=== PATIENT | male | born 1985 | race Caucasian/White ===

== ENCOUNTER 2017-01-26 23:19 | Emergency (ER) | payer OTHER ==
--- NOTE | 2017-01-27 02:31 | ED NURSING NOTES ---
Clinical Report - Nurses [facility] [address] [place] [address] 01/26/2017 23:19 Patient: LAURA GARIBAY TRIAGE Triage time 23:52 Jan 26 2017. Acuity: LEVEL 4. Chief Complaint: (left 5th finger pain). 23:54 01/26/17. SEPSIS SCREEN: Sepsis Screen. Negative (no infection suspected/documented). ARUN COMA SCORE: Protivin Coma Scale: 15- eyes open spontaneously (4); best verbal response- oriented x 4 (5); best motor response- obeys commands (6). --23:54 Alisia uRiz R.N. 23:54 01/26/17. BP: 156/87. HR: 96. RR: 16. O2 saturation: 100%. Temp: 98.1 F. Pain level now 8/10. --23:54 Alisia Ruiz R.N. Weight: 90.7 kg stated. Height/Length: 70 inches Per Patient. BMI: 28.7. --23:51 Alisia Ruiz R.N. Medications Percocet Oral. --00:14 Alisia Ruiz R.N. Allergies Cillins. Latex. Other antibiotic. Sulfa Antibiotics. --00:14 Alisia Ruiz R.N. Medication/allergy information source: the patient. --23:54 Alisia Ruiz R.N. History Arrived by private vehicle. Historian: patient. Accompanied by family. This started just prior to arrival. ( states out of percocet. may have injured it while working in garage last night.). No fever, weakness, cough, difficulty breathing or skin rash. Denies muscle aches. Treatment BUSINESS INTELLIGENCE REPORTING ANALYST: None. PAST MEDICAL HX: Immunizations: has received tetanus within 5 years. SOCIAL HX: Heavy tobacco smoker (cigarette)- 1 pack per day. Occasional alcohol use. No drug use. No infectious disease exposure. ABUSE ASSESSMENT: No report of abuse. FALL RISK ASSESSMENT: Fall risk assessment completed. No fall risk identified. NUTRITIONAL RISK ASSESSMENT: The nutritional risk assessment revealed no deficiencies. FUNCTIONAL ASSESSMENT: Functional assessment: no impairments noted. LEARNING NEEDS ASSESSMENT: The learning needs assessment revealed no barriers. SKIN INTEGRITY ASSESSMENT: Skin integrity risk assessment completed. No skin integrity risk identified. --23:54 Alisia Ruiz R.N. PROBLEMS: Substance Abuse. Pino's esophagus. Diabetes Mellitus. --00:15 Alisia Ruiz R.N. ADDITIONAL SURGERIES: no known surgeries. Interventions ID band on patient. --23:54 Alisia Ruiz R.N. PHYSICAL ASSESSMENT ( no deformity or swelling of left 5th finger.). GENERAL / NEURO / PSYCH: Alert. Oriented X 4. HEENT: No facial asymmetry noted. RESPIRATORY: Breath sounds within normal limits. CVS: Pulses within normal limits. GI / : Abdomen nontender. SKIN: Skin intact. Skin is warm and dry. --23:58 Alisia Ruiz R.N. NURSING PROGRESS NOTES 00:01 01/27/17. The initial plan of care for this patient includes an assessment with efforts to address the presence of pain; impairment of the musculoskeletal and integumentary system. This plan of care was discussed with the patient. Reassurance given. --00:35 Alisia Ruiz R.N. DISPOSITION / DISCHARGE Condition at departure: unchanged and stable. The patient left prior to discharge education being provided. ( Patient told staff he was going to restroom. Patient never came back to his room. Waiting area searched and patient not found. RX for abx given to charger tester. Will contact patient via phone to bulk picker instructions). --02:42 Alisia Ruiz R.N. 23:51 01/26/17. BP: 156/87. HR: 96. RR: 16. O2 saturation: 100%. Temp: 98.1 F. Pain level now 8/10. --02:42 Alisia Ruiz R.N. Departure time: 02:42 Jan 27 2017. --02:42 Alisia Ruiz R.N. Locked/Released at 01/27/2017 2:43 by Alisia Ruiz R.N.
--- NOTE | 2017-01-27 02:31 | ED CLINICAL REPORT ---
Clinical Report - Physicians/Mid Levels [facility] [address] [place] [address] 01/26/2017 23:19 Patient: LAURA GARIBAY Time Seen: 23:54; initial patient contact. Arrived- By private vehicle. Historian- patient. HISTORY OF PRESENT ILLNESS Chief Complaint: Injury to left hand. The injury happened today. Occurred at home. Patient is experiencing moderate pain. Patient denies injury to the head or neck. REVIEW OF SYSTEMS Foreign body is suspected. He has had swelling. No skin laceration or fever. All systems otherwise negative, except as recorded above. PAST HISTORY Substance Abuse. Pino's esophagus. Diabetes Mellitus. ADDITIONAL SURGERIES: no known surgeries. Tetanus immunization status is up-to-date. Additional Surgeries: no known surgeries. Medications: Percocet Oral. Allergies: Cillins. Latex. Other antibiotic. Sulfa Antibiotics. SOCIAL HISTORY Current every day smoker. No alcohol use or drug use. ADDITIONAL NOTES The nursing notes have been reviewed with agreement regarding the chief complaint, PMH and patient medications and allergies. PHYSICAL EXAM Vital Signs: 01/26/2017 23:54 BP: 156/87. HR: 96. RR: 16. O2 saturation: 100%. Temp: 98.1 F. Have been reviewed. Hypertensive. Heart rate normal. Respiratory rate normal. Temperature normal. Oxygen saturation normal. Appearance: Alert. Oriented X3. No acute distress. Head: Head atraumatic. Skin: Skin warm and dry. Normal skin color. Extremities: No signs of infection present in the upper extremities. Left little finger: mild erythema, tenderness and swelling, multiple puncture wounds and suspected foreign body of the DIP joint. Neurovascular intact distally. No laceration. No limitation in movement. Extremities otherwise negative. Neuro, Vascular and Tendons: Vascular status intact. Sensation intact. Motor intact. Tendon function intact. Neuro: Oriented X 3. No motor deficit. No sensory deficit. LABS, X-RAYS, AND EKG Lt UE Digits X-ray: (2 linear radiopaque objects palmar aspect DIP area). Views: AP, lateral and oblique of 5th finger. Technique: good. The X-rays were independently viewed by me and interpreted contemporaneously by me. Prior films were not available for comparison. PROGRESS AND PROCEDURES Disposition: Discharged home in good and improved condition. Condition: good. CLINICAL IMPRESSION Retained deep metal soft tissue foreign body to the left 5th toe. Puncture wound present. No laceration or left toenail injury. INSTRUCTIONS Your Current Medications: CONTINUE TAKING THE FOLLOWING MEDICATIONS: Percocet Oral. Prescription Medications: Clindamycin 300 mg: take 1 capsule orally every 6 hours for 7 days. No refill. Follow-up: Screening today revealed the patient's blood pressure to be in the hypertensive range. The patient should follow up with a primary care provider for blood pressure management. [facility]: [facility], , [address] [place], [phone] Follow up in about two days. Call for an appointment. (Electronically signed by Daryl Cosby Dr. 01/27/2017 3:30)
--- NOTE | 2017-01-27 02:31 | ED CLINICAL REPORT ---
Clinical Report - Physicians/Mid Levels [facility] [address] [place] [place] [address] 01/26/2017 23:19 Patient: LAURA GARIBAY Time Seen: 23:54; initial patient contact. Arrived- By private vehicle. Historian- patient. HISTORY OF PRESENT ILLNESS Chief Complaint: Injury to left hand. The injury happened today. Occurred at home. Patient is experiencing moderate pain. Patient denies injury to the head or neck. REVIEW OF SYSTEMS Foreign body is suspected. He has had swelling. No skin laceration or fever. All systems otherwise negative, except as recorded above. PAST HISTORY Substance Abuse. Pino's esophagus. Diabetes Mellitus. ADDITIONAL SURGERIES: no known surgeries. Tetanus immunization status is up-to-date. Additional Surgeries: no known surgeries. Medications: Percocet Oral. Allergies: Cillins. Latex. Other antibiotic. Sulfa Antibiotics. SOCIAL HISTORY Current every day smoker. No alcohol use or drug use. ADDITIONAL NOTES The nursing notes have been reviewed with agreement regarding the chief complaint, PMH and patient medications and allergies. PHYSICAL EXAM Vital Signs: 01/26/2017 23:54 BP: 156/87. HR: 96. RR: 16. O2 saturation: 100%. Temp: 98.1 F. Have been reviewed. Hypertensive. Heart rate normal. Respiratory rate normal. Temperature normal. Oxygen saturation normal. Appearance: Alert. Oriented X3. No acute distress. Head: Head atraumatic. Skin: Skin warm and dry. Normal skin color. Extremities: No signs of infection present in the upper extremities. Left little finger: mild erythema, tenderness and swelling, multiple puncture wounds and suspected foreign body of the DIP joint. Neurovascular intact distally. No laceration. No limitation in movement. Extremities otherwise negative. Neuro, Vascular and Tendons: Vascular status intact. Sensation intact. Motor intact. Tendon function intact. Neuro: Oriented X 3. No motor deficit. No sensory deficit. LABS, X-RAYS, AND EKG Lt UE Digits X-ray: (2 linear radiopaque objects palmar aspect DIP area). Views: AP, lateral and oblique of 5th finger. Technique: good. The X-rays were independently viewed by me and interpreted contemporaneously by me. Prior films were not available for comparison. PROGRESS AND PROCEDURES Disposition: Discharged home in good and improved condition. Condition: good. CLINICAL IMPRESSION Retained deep metal soft tissue foreign body to the left 5th toe. Puncture wound present. No laceration or left toenail injury. INSTRUCTIONS Your Current Medications: CONTINUE TAKING THE FOLLOWING MEDICATIONS: Percocet Oral. Prescription Medications: Clindamycin 300 mg: take 1 capsule orally every 6 hours for 7 days. No refill. Follow-up: Screening today revealed the patient's blood pressure to be in the hypertensive range. The patient should follow up with a primary care provider for blood pressure management. [facility] with: [facility], , [address] [place], [phone] Follow up in about two days. Call for an appointment. (Electronically signed by Daryl Cosby Dr. 01/27/2017 3:30)
--- NOTE | 2017-01-27 02:31 | ED ORDER SUMMARY ---
..... Patient: LAURA GARIBAY OrderSheet [facility] VisitID: [id number] [address] [place] [address] 31y, M Registration Date/Time: 01/26/2017 ORDER SHEET Weight: 90.7 kg (stated) Allergies: Cillins, Latex, Other antibiotic, Sulfa Antibiotics GENERAL ORDERS: Finger Left (5th) Urgent (00:42 01/27/2017 Rosalba Bernard) (Ack 0:51 SRedmond) (1:19 LMuller) MEDICATION ORDERS: Motrin PO 800 mg (NOW) (00:42 01/27/2017 Rosalba Bernard) (Cancelled: Patient Refusal0:58 Samira Cole) IV FLUIDS: ORDER SHEET NOTES: [Electronically signed by Alisia Ruiz R.N. (02:43 01/27/2017)] [Electronically signed by Daryl Cosby Dr. (03:30 01/27/2017)] [Electronically locked/signed by Alisia Ruiz R.N. (02:43 01/27/2017)]
--- NOTE | 2017-01-27 02:31 | ED NURSING NOTES ---
Clinical Report - Nurses [facility] [address] [place] [address] 01/26/2017 23:19 Patient: LAURA GARIBAY TRIAGE Triage time 23:52 Jan 26 2017. Acuity: LEVEL 4. Chief Complaint: (left 5th finger pain). 23:54 01/26/17. SEPSIS SCREEN: Sepsis Screen. Negative (no infection suspected/documented). ARUN COMA SCORE: Faxon Coma Scale: 15- eyes open spontaneously (4); best verbal response- oriented x 4 (5); best motor response- obeys commands (6). --23:54 Alisia Ruiz R.N. 23:54 01/26/17. BP: 156/87. HR: 96. RR: 16. O2 saturation: 100%. Temp: 98.1 F. Pain level now 8/10. --23:54 Alisia Ruiz R.N. Weight: 90.7 kg stated. Height/Length: 70 inches Per Patient. BMI: 28.7. --23:51 Alisia Ruiz R.N. Medications Percocet Oral. --00:14 Alisia Ruiz R.N. Allergies Cillins. Latex. Other antibiotic. Sulfa Antibiotics. --00:14 Alisia Ruiz R.N. Medication/allergy information source: the patient. --23:54 Alisia Ruiz R.N. History Arrived by private vehicle. Historian: patient. Accompanied by family. This started just prior to arrival. ( states out of percocet. may have injured it while working in garage last night.). No fever, weakness, cough, difficulty breathing or skin rash. Denies muscle aches. Treatment ORE ROASTER: None. PAST MEDICAL HX: Immunizations: has received tetanus within 5 years. SOCIAL HX: Heavy tobacco smoker (cigarette)- 1 pack per day. Occasional alcohol use. No drug use. No infectious disease exposure. ABUSE ASSESSMENT: No report of abuse. FALL RISK ASSESSMENT: Fall risk assessment completed. No fall risk identified. NUTRITIONAL RISK ASSESSMENT: The nutritional risk assessment revealed no deficiencies. FUNCTIONAL ASSESSMENT: Functional assessment: no impairments noted. LEARNING NEEDS ASSESSMENT: The learning needs assessment revealed no barriers. SKIN INTEGRITY ASSESSMENT: Skin integrity risk assessment completed. No skin integrity risk identified. --23:54 Alisia Ruiz R.N. PROBLEMS: Substance Abuse. Pino's esophagus. Diabetes Mellitus. --00:15 Alisia Ruiz R.N. ADDITIONAL SURGERIES: no known surgeries. Interventions ID band on patient. --23:54 Alisia Ruiz R.N. PHYSICAL ASSESSMENT ( no deformity or swelling of left 5th finger.). GENERAL / NEURO / PSYCH: Alert. Oriented X 4. HEENT: No facial asymmetry noted. RESPIRATORY: Breath sounds within normal limits. CVS: Pulses within normal limits. GI / : Abdomen nontender. SKIN: Skin intact. Skin is warm and dry. --23:58 Alisia Ruiz R.N. NURSING PROGRESS NOTES 00:01 01/27/17. The initial plan of care for this patient includes an assessment with efforts to address the presence of pain; impairment of the musculoskeletal and integumentary system. This plan of care was discussed with the patient. Reassurance given. --00:35 Alisia Ruiz R.N. DISPOSITION / DISCHARGE Condition at departure: unchanged and stable. The patient left prior to discharge education being provided. ( Patient told staff he was going to restroom. Patient never came back to his room. Waiting area searched and patient not found. RX for abx given to charge authorizer. Will contact patient via phone to supervisor picking crew instructions). --02:42 Alisia Ruiz R.N. 23:51 01/26/17. BP: 156/87. HR: 96. RR: 16. O2 saturation: 100%. Temp: 98.1 F. Pain level now 8/10. --02:42 Alisia Ruiz R.N. Departure time: 02:42 Jan 27 2017. --02:42 Alisia Ruiz R.N. Locked/Released at 01/27/2017 2:43 by Alisia Ruiz R.N.
--- NOTE | 2017-01-27 02:31 | ED ORDER SUMMARY ---
..... Patient: LAURA GARIBAY OrderSheet [facility] VisitID: [id number] [address] [place] [address] 31y, M Registration Date/Time: 01/26/2017 ORDER SHEET Weight: 90.7 kg (stated) Allergies: Cillins, Latex, Other antibiotic, Sulfa Antibiotics GENERAL ORDERS: Finger Left (5th) Urgent (00:42 01/27/2017 Rosalba Bernard) (Ack 0:51 SRedmond) (1:19 LMuller) MEDICATION ORDERS: Motrin PO 800 mg (NOW) (00:42 01/27/2017 Rosalba Bernard) (Cancelled: Patient Refusal0:58 Samira Cole) IV FLUIDS: ORDER SHEET NOTES: [Electronically signed by Alisia Ruiz R.N. (02:43 01/27/2017)] [Electronically signed by Daryl Cosby Dr. (03:30 01/27/2017)] [Electronically locked/signed by Alisia Ruiz R.N. (02:43 01/27/2017)]
--- NOTE | 2017-01-27 03:30 | ED MED RECONCILIATION SUMMARY ---
Patient: LAURA GARIBAY Medication Reconciliation Report [facility] VisitID: [id number] [address] [place] [address] 31y, M Registration Date/Time: 01/26/2017 Weight: 90.7 kg Height/Length: 70 in. BMI: 28.7 ALLERGIES: Cillins, Latex, Other antibiotic, Sulfa Antibiotics The patient's Home Medications are listed below: CONTINUE TAKING THE FOLLOWING MEDICATIONS: Percocet Oral The source(s) of the original Home Medication information: patient The following Medications were given to the patient in the Emergency Department: None. The following Medications were prescribed to the patient: Clindamycin 300 mg: take 1 capsule orally every 6 hours for 7 days. No refill. -- Daryl Cosby Dr.
--- NOTE | 2017-01-27 03:30 | ED MAR SUMMARY ---
..... Medication Administration Record [facility] [address] [place], [place] [id number] Patient: LAURA GARIBAY Visit ID: [id number] 31y, M Weight: 90.7 kg Height/Length: 70 in BMI: 28.7 ALLERGIES: Cillins, Latex, Other antibiotic, Sulfa Antibiotics
--- NOTE | 2017-01-27 03:30 | ED MAR SUMMARY ---
..... Medication Administration Record [facility] [address] [place], [place] [id number] Patient: LAURA GARIBAY Visit ID: [id number] 31y, M Weight: 90.7 kg Height/Length: 70 in BMI: 28.7 ALLERGIES: Cillins, Latex, Other antibiotic, Sulfa Antibiotics
--- NOTE | 2017-01-27 03:30 | ED MED RECONCILIATION SUMMARY ---
Patient: LAURA GARIBAY Medication Reconciliation Report [facility] VisitID: [id number] [address] [place] [address] 31y, M Registration Date/Time: 01/26/2017 Weight: 90.7 kg Height/Length: 70 in. BMI: 28.7 ALLERGIES: Cillins, Latex, Other antibiotic, Sulfa Antibiotics The patient's Home Medications are listed below: CONTINUE TAKING THE FOLLOWING MEDICATIONS: Percocet Oral The source(s) of the original Home Medication information: patient The following Medications were given to the patient in the Emergency Department: None. The following Medications were prescribed to the patient: Clindamycin 300 mg: take 1 capsule orally every 6 hours for 7 days. No refill. -- Daryl Cosby Dr.
--- NOTE | 2017-01-27 03:30 | ED DISCHARGE INSTRUCTIONS ---
Patient: LAURA GARIBAY General Instructions [facility] VisitID: [id number] [address] [place] [address] 31y, M Registration Date/Time: 01/26/2017 Retained deep metal soft tissue foreign body to the left 5th toe. Puncture wound present. No laceration or left toenail injury. INSTRUCTIONS Your Current Medications: CONTINUE TAKING THE FOLLOWING MEDICATIONS: Percocet Oral. Prescription Medications: Clindamycin 300 mg: take 1 capsule orally every 6 hours for 7 days. No refill. Follow-up: Screening today revealed the patient's blood pressure to be in the hypertensive range. The patient should follow up with a primary care provider for blood pressure management. [facility] with: [facility], , [address] [place], [phone] Follow up in about two days. Call for an appointment. ADDITIONAL INFORMATION Foreign ObjectUnder The Skin, Not Removed You may have a particle under your skin whichcould notbe found. Very small particles that remain under the skin usually cause no problem and need no further treatment. Sometimes they work their way to the surface on their own. If you see this happening, you can remove any particles with a tweezers. Home care The following guidelines will help you care for your wound at home: Keep the wound clean and dry. If a bandage was applied and it becomes wet or dirty, replace it. Otherwise, leave it in place for the first 24 hours, then change it once a day or as directed. If sutures were used, clean the wound daily: After removing the bandage, wash the area with soap and water. After cleaning, apply a thin layer of antibiotic ointment. This will keep the wound clean and make it easier to remove the stitches. Reapply the bandage. You may shower as usual after the first 24 hours, but do not soak the area in water (no baths or swimming) until the sutures are removed. If a surgical tape closure was used, keep the area clean and dry. If it becomes wet, blot it dry with a towel. You may use acetaminophen or ibuprofen to control pain, unless another pain medicine was prescribed.If you have chronic liver or kidney disease or ever had a stomach ulcer or GI bleeding, talk with your doctor before using these medicines. Follow-up care Follow up with your health care provider as directed. Most skin wounds heal within ten days. However, there is an increased risk of infection if there is any particle remaining under the skin. Therefore, check the wound daily for the signs listed below. Stitches should be removed within 714 days. If surgical tape closures were used, remove them after seven days, unless told otherwise. Note:Any X-rays will be reviewed by a radiologist. You will be notified if there are any new findings that may affect your care. When to seek medical care Get prompt medical attention if any of the following occur: Increasing pain in the wound Redness, swelling or pus coming from the wound Fever of 100.4F (38C) or higher, or as directed by your health care provider Clindamycin Hydrochloride Oral capsule What is this medicine? CLINDAMYCIN (KLIN da HEATHER sin) is a lincosamide antibiotic. It is used to treat certain kinds of bacterial infections. It will not work for colds, flu, or other viral infections. How should I use this medicine? Take this medicine by mouth with a full glass of water. Follow the directions on the prescription label. You can take this medicine with food or on an empty stomach. If the medicine upsets your stomach, take it with food. Take your medicine at regular intervals. Do not take your medicine more often than directed. Take all of your medicine as directed even if you think your are better. Do not skip doses or stop your medicine early. Talk to your engineering document control clerk regarding the use of this medicine in children. Special care may be needed. What side effects may I notice from receiving this medicine? Side effects that you should report to your doctor or health medical care administrator as soon as possible: allergic reactions like skin rash, itching or hives, swelling of the face, lips, or tongue dark urine pain on swallowing redness, blistering, peeling or loosening of the skin, including inside the mouth unusual bleeding or bruising unusually weak or tired yellowing of eyes or skin Side effects that usually do not require medical attention (report to your doctor or health medical care administrator if they continue or are bothersome): diarrhea itching in the rectal or genital area joint pain nausea, vomiting stomach pain What may interact with this medicine? chloramphenicol erythromycin kaolin products What if I miss a dose? If you miss a dose, take it as soon as you can. If it is almost time for your next dose, take only that dose. Do not take double or extra doses. Where should I keep my medicine? Keep out of the reach of children. Store at room temperature between 20 and 25 degrees C (68 and 77 degrees F). Throw away any unused medicine after the expiration date. What should I tell my health care provider before I take this medicine? They need to know if you have any of these conditions: kidney disease liver disease stomach problems like colitis an unusual or allergic reaction to clindamycin, lincomycin, or other medicines, foods, dyes like tartrazine or preservatives or trying to get breast-feeding What should I watch for while using this medicine? Tell your doctor or healthcare professional if your symptoms do not start to get better or if they get worse. Do not treat diarrhea with over the counter products. Contact your doctor if you have diarrhea that lasts more than 2 days or if it is severe and watery. You have been given the following additional information: Foreign Body, Soft Tissue [Not Removed] Clindamycin Hydrochloride Oral capsule (Electronically signed by Daryl Cosby Dr. 01/27/2017 3:30)
--- NOTE | 2017-01-27 03:30 | ED DISCHARGE INSTRUCTIONS ---
Patient: LAURA GARIBAY General Instructions [facility] VisitID: [id number] [address] [place] [address] 31y, M Registration Date/Time: 01/26/2017 Retained deep metal soft tissue foreign body to the left 5th toe. Puncture wound present. No laceration or left toenail injury. INSTRUCTIONS Your Current Medications: CONTINUE TAKING THE FOLLOWING MEDICATIONS: Percocet Oral. Prescription Medications: Clindamycin 300 mg: take 1 capsule orally every 6 hours for 7 days. No refill. Follow-up: Screening today revealed the patient's blood pressure to be in the hypertensive range. The patient should follow up with a primary care provider for blood pressure management. Follow-up with: [facility], , [address] [place], [id number] Follow up in about two days. Call for an appointment. ADDITIONAL INFORMATION Foreign ObjectUnder The Skin, Not Removed You may have a particle under your skin whichcould notbe found. Very small particles that remain under the skin usually cause no problem and need no further treatment. Sometimes they work their way to the surface on their own. If you see this happening, you can remove any particles with a tweezers. Home care The following guidelines will help you care for your wound at home: Keep the wound clean and dry. If a bandage was applied and it becomes wet or dirty, replace it. Otherwise, leave it in place for the first 24 hours, then change it once a day or as directed. If sutures were used, clean the wound daily: After removing the bandage, wash the area with soap and water. After cleaning, apply a thin layer of antibiotic ointment. This will keep the wound clean and make it easier to remove the stitches. Reapply the bandage. You may shower as usual after the first 24 hours, but do not soak the area in water (no baths or swimming) until the sutures are removed. If a surgical tape closure was used, keep the area clean and dry. If it becomes wet, blot it dry with a towel. You may use acetaminophen or ibuprofen to control pain, unless another pain medicine was prescribed.If you have chronic liver or kidney disease or ever had a stomach ulcer or GI bleeding, talk with your doctor before using these medicines. Follow-up care Follow up with your health care provider as directed. Most skin wounds heal within ten days. However, there is an increased risk of infection if there is any particle remaining under the skin. Therefore, check the wound daily for the signs listed below. Stitches should be removed within 714 days. If surgical tape closures were used, remove them after seven days, unless told otherwise. Note:Any X-rays will be reviewed by a radiologist. You will be notified if there are any new findings that may affect your care. When to seek medical care Get prompt medical attention if any of the following occur: Increasing pain in the wound Redness, swelling or pus coming from the wound Fever of 100.4F (38C) or higher, or as directed by your health care provider Clindamycin Hydrochloride Oral capsule What is this medicine? CLINDAMYCIN (KLIN da HEATHER sin) is a lincosamide antibiotic. It is used to treat certain kinds of bacterial infections. It will not work for colds, flu, or other viral infections. How should I use this medicine? Take this medicine by mouth with a full glass of water. Follow the directions on the prescription label. You can take this medicine with food or on an empty stomach. If the medicine upsets your stomach, take it with food. Take your medicine at regular intervals. Do not take your medicine more often than directed. Take all of your medicine as directed even if you think your are better. Do not skip doses or stop your medicine early. Talk to your enterprise cloud architect regarding the use of this medicine in children. Special care may be needed. What side effects may I notice from receiving this medicine? Side effects that you should report to your doctor or health intensive care anaesthetist as soon as possible: allergic reactions like skin rash, itching or hives, swelling of the face, lips, or tongue dark urine pain on swallowing redness, blistering, peeling or loosening of the skin, including inside the mouth unusual bleeding or bruising unusually weak or tired yellowing of eyes or skin Side effects that usually do not require medical attention (report to your doctor or health intensive care anaesthetist if they continue or are bothersome): diarrhea itching in the rectal or genital area joint pain nausea, vomiting stomach pain What may interact with this medicine? chloramphenicol erythromycin kaolin products What if I miss a dose? If you miss a dose, take it as soon as you can. If it is almost time for your next dose, take only that dose. Do not take double or extra doses. Where should I keep my medicine? Keep out of the reach of children. Store at room temperature between 20 and 25 degrees C (68 and 77 degrees F). Throw away any unused medicine after the expiration date. What should I tell my health care provider before I take this medicine? They need to know if you have any of these conditions: kidney disease liver disease stomach problems like colitis an unusual or allergic reaction to clindamycin, lincomycin, or other medicines, foods, dyes like tartrazine or preservatives or trying to get breast-feeding What should I watch for while using this medicine? Tell your doctor or healthcare professional if your symptoms do not start to get better or if they get worse. Do not treat diarrhea with over the counter products. Contact your doctor if you have diarrhea that lasts more than 2 days or if it is severe and watery. You have been given the following additional information: Foreign Body, Soft Tissue [Not Removed] Clindamycin Hydrochloride Oral capsule (Electronically signed by Daryl Cosby Dr. 01/27/2017 3:30)
--- NOTE | 2017-01-27 06:23 | DIAGNOSTIC IMAGING REPORT ---
PROCEDURE: XR FINGER - LEFT INDICATION: TRAUMA/INJURY TECHNIQUE: A P hand and two views of the right fifth digit. COMPARISON: None. FINDINGS: There are two linear foreign bodies on the volar aspect of the left fifth DIP joint, each measuring approximately 2 mm. No fracture or dislocation. Normal joint spaces. IMPRESSION: 1. Two foreign bodies on the volar aspect of the left fifth DIP joint.
== END 2017-01-27 02:42 | disposition home or self-care (01) ==
LOC: ED SRH 23:19
DX: S61.247A Puncture wound with foreign body of left little finger without damage to nail, initial encounter (principal); X58.XXXA Exposure to other specified factors, initial encounter; Y99.9 Unspecified external cause status; Y93.9 Activity, unspecified; Y92.9 Unspecified place or not applicable; Z79.891 Long term (current) use of opiate analgesic; Z88.0 Allergy status to penicillin; Z88.1 Allergy status to other antibiotic agents; Z88.2 Allergy status to sulfonamides; Z91.040 Latex allergy status